=== PATIENT | female | born 1955 | race Caucasian/White ===

== ENCOUNTER 2018-04-30 08:51 | Inpatient (IN) ==
--- NOTE | 2018-04-03 12:43 | Anesthesiology Consultation ---
Date of Service April 03, 2018 Assessment & Plan (1) Encounter for pre-operative examination: Plan: CARDIO CLEARANCE 04/10: "EKG 04/03/2018 at [facility] SR 65 bpm. T inversio n in inferior leads unchanged from prior EKG in 2016. No anginal episodes. Her revised cardiac risk index Is 1 point class II risk 6% risk of major cardiac event. She is intermediate risk for cardiac events. She can proceed with surgery." Chart Review Chart Review: Acceptable Risk for Surgery and Patient seen in Pre Admission Testing Teaching & Discussion Instructed NPO after midnight before surgery, except medications with 15 cc of water. Medication instructions provided according to the PAT guidelines. History Surgery Operation Date: 04/30/18 11:25 Proposed Procedures p Left Total Shoulder Arthroplasty - Stanley Burr MD Height/Weight Height: 5 ft 1 in Weight: 118.6 kg Allergies Allergy/AdvReac Type Severity Reaction Status Date / Time gabapentin AdvReac Mild DIZZINESS Unverified 03/27/18 10:18 lisinopril AdvReac Cough Verified 03/27/18 10:41 Medications Home Medications Medication Instructions Recorded Confirmed Last Taken albuterol sulfate [Ventolin HFA] 2 puff INHALATION Q6H PRN 03/27/18 03/27/18 Unknown aspirin [Aspirin Low Dose] 81 mg PO QAM 03/27/18 03/27/18 Unknown atorvastatin 80 mg PO QAM 03/27/18 03/27/18 Unknown fesoterodine [Toviaz] 4 mg PO QAM 03/27/18 03/27/18 Unknown fluticasone-salmeterol [Advair 1 inh INHALATION BID 03/27/18 03/27/18 Unknown Diskus] ibuprofen 600 mg PO QID PRN 03/27/18 03/27/18 Unknown metoprolol succinate 150 mg PO QAM 03/27/18 03/27/18 Unknown montelukast 10 mg PO QDD 03/27/18 03/27/18 Unknown nitroglycerin 1 tab SUBLINGUAL DIRECTED PRN 03/27/18 03/27/18 Unknown omeprazole 20 mg PO BIDM 03/27/18 03/27/18 Unknown ranitidine HCl 150 mg PO HS 03/27/18 03/27/18 Unknown Past Medical History Medical History CAD (coronary artery disease) (Chronic) s/p PCI to LCx 2002 Asthma Carotid artery stenosis 12/2017 duplex showed 50-69% stenosis B/L DJD (degenerative joint disease) Exertional dyspnea GERD (gastroesophageal reflux disease) High cholesterol Hypertension Morbid obesity due to excess calories Osteoarthritis Sleep apnea COULD NOT TOLERATE CPAP MACHINE Urinary incontinence Past Family History Family History Sister No problems noted. Brother Family history of diabetes mellitus Sister Family history of diabetes mellitus Aunt Family history of diabetes mellitus Uncle Family history of diabetes mellitus Past Surgical History Surgical History History of cardiac cath 2002 Seen by PCP for YOUNG. Failed stress test. Subsequent cath with 1 stent. History of cataract surgery both eyes History of total bilateral knee replacement Hx of foot surgery right Past Anesthesia History No Family Hx of Anesthesia Complications and Other History of PONV Yes (NAUSEA WITH TKA) Motion Sickness Screening History of Motion Sickness: Yes Social History Smoking Status: Never smoker Do You Dip or Chew Tobacco: No Hx Alcohol Use: No Hx Substance Use: No Exercise / Class Metabolic Activity III < 4 Walking/Shop/Light housework (No SOB or CP with ambulation; +SOB with stairs) Review of Systems Pt denies any recent chest pain, shortness of breath, palpitations, cough, fever or URI. +24hr "stomach bug" 2 wks ago Physical Exam Vital Signs BP: 114/77 P: 63bpm SPO2: 94% RA T: 97.6 F R: 16 Constitutional + morbidly obese ENMT Mouth: + poor dentition and + loose teeth (2 bottom teeth next to gap from missing teeth); no dental restorations and no chipped teeth Thyromental Distance: > or= 3.5 Finger Breadths (3.5) Mallampati Class: III Mouth / Teeth: 1. missing 2 teeth Neck normal visual inspection; neck extension not limited Respiratory normal respiratory effort Auscultation: lungs clear to auscultation bilaterally Cardiovascular Rate/Rhythm: regular rate and regular rhythm Heart Sounds: no murmur Vessels: no carotid bruit Extremities: + edema (B/L non-pitting 1+ edema, pt states this is baseline) Testing Electrocardiogram Date: 04/03/18 Findings: + NSR @ (65) Chest X-Ray Date: 04/03/18 Mild cardiomegaly. Otherwise negative study. Stress Test Date: 08/19/13 Type: nuclear Mild intensity small reversible defect involving apical inferior wall, proximal lateral wall may suggest ischemia. No fixed defect is noted. Normal LV wall motion and systolic function. *this was done as part of a pre-op workup. Per 2014 f/u cardio note, "Unfortunately, the patient underwent knee replacement surgery before she received these results/recommendation. Since she had no cardiac complications ken-operatively and she is asymptomatic with no evidence of angina. I recommend continuing medical therapy at this time." Laboratory Results 04/03/18 13:28 04/03/18 13:28 Blood Type O Positive 04/03/18 13: Antibody Screen NEGATIVE 04/03/18 13:28 PT 10.3 Seconds (9.0-12.0) 04/03/18 13: INR 1.0 (0.9-1.1) 04/03/18 13: APTT 26.1 Seconds (21.0-31.0) 04/03/18 13:28 Hemoglobin A1c 6.4 % (4.5-5.6) H 04/03/18 13:28 Urine Color Dark Yellow 04/03/18 13:28 Urine Appearance Clear (Clear) 04/03/18 13:28 Urine pH 5.5 (4.5-7.5) 04/03/18 13:28 Ur Specific [place] 1.028 (1.000-1.030) 04/03/18 13:28 Urine Protein Negative (Negative) 04/03/18 13:28 Urine Glucose (UA) Negative (Negative) 04/03/18 13:28 Urine Ketones Trace (Negative) H 04/03/18 13:28 Urine Nitrite Negative (Negative) 04/03/18 13:28 Ur Leukocyte Esterase Negative (Negative) 04/03/18 13:28
--- NOTE | 2018-04-03 12:48 | PAT Medication Instructions ---
Medication Instructions Date of Service April 03, 2018 Home Medications albuterol sulfate [Ventolin HFA] 2 puff INHALATION Q6H PRN aspirin [Aspirin Low Dose] 81 mg PO QAM atorvastatin 80 mg PO QAM fesoterodine [Toviaz] 4 mg PO QAM fluticasone-salmeterol [Advair Diskus] 1 inh INHALATION BID ibuprofen 600 mg PO QID PRN metoprolol succinate 150 mg PO QAM montelukast 10 mg PO QDD nitroglycerin 1 tab SUBLINGUAL DIRECTED PRN omeprazole 20 mg PO BIDM ranitidine HCl 150 mg PO HS ASK your surgeon for instructions ibuprofen 600 mg PO QID PRN DO NOT take the morning of surgery fesoterodine [Toviaz] 4 mg PO QAM Take morning of surgery With a small sip of water, OTHERWISE NOTHING TO EAT OR DRINK AFTER MIDNIGHT: albuterol sulfate [Ventolin HFA] 2 puff INHALATION Q6H PRN (if needed, and bring with you to the hospital) aspirin [Aspirin Low Dose] 81 mg PO QAM atorvastatin 80 mg PO QAM fluticasone-salmeterol [Advair Diskus] 1 inh INHALATION BID metoprolol succinate 150 mg PO QAM nitroglycerin 1 tab SUBLINGUAL DIRECTED PRN (if needed) omeprazole 20 mg PO BIDM Take evening before surgery albuterol sulfate [Ventolin HFA] 2 puff INHALATION Q6H PRN (if needed) fluticasone-salmeterol [Advair Diskus] 1 inh INHALATION BID montelukast 10 mg PO QDD nitroglycerin 1 tab SUBLINGUAL DIRECTED PRN (if needed) omeprazole 20 mg PO BIDM ranitidine HCl 150 mg PO HS Other Notes If you have any questions please call us at [phone] or [phone] or [phone] or [phone]
[2018-04-03 14:09] LABS: Basophils # (auto) 0.02 K/uL (0-0.2); Basophils % (auto) 0.3 %; Eosinophils # (auto) 0.16 K/uL (0-0.5); Hematocrit (blood only) 37.1 % (37-47); Hemoglobin 11.9 g/dL (12.0-16.0); Immature Granulocytes # (auto) 0.02 K/uL (0.00-0.02); Immature Granulocytes % (auto) 0.3 %; Lymphocytes # (auto) 1.96 K/uL (1.2-3.4); Lymphocytes % (auto) 24.7 %; Mean Corpuscular Hgb Conc 32.1 g/dL (32-36); Mean Corpuscular Volume 85.9 fL (80-100); Mean Platelet Volume 9.9 fL (7.4-10.4); Monocytes % (auto) 8.8 %; Neutrophils # (auto) 5.06 K/uL (1.4-6.5); Neutrophils % (auto) 63.9 %; Platelet Count 296 K/uL (130-400); RDW Coefficient of Variation 14.2 % (11.5-14.5); RDW Standard Deviation 44.4 fL (36.4-46.3); Red Blood Count 4.32 M/uL (4.2-5.4); White Blood Count 7.92 K/uL (4.8-10.8)
[2018-04-03 14:13] LABS: Estimated Average Glucose 137 mg/dl; Hemoglobin A1C 6.4 % (4.5-5.6)
[2018-04-03 14:20] LABS: Partial Thromboplastin Time 26.1 Seconds (21.0-31.0); Prothrombin Time 10.3 Seconds (9.0-12.0)
--- NOTE | 2018-04-03 14:24 | XRay Report ---
XR chest Pre-admission PA/Lat CLINICAL HISTORY: pat preoperative evaluation COMPARISON STUDY: 08/05/2013 FINDINGS: Mild cardiomegaly. Diaphragms are smooth. Lungs are clear. IMPRESSION: Mild cardiomegaly. Otherwise negative study. The above report was generated using voice recognition software. It may contain grammatical, syntax or spelling errors. Electronically signed by: Kartik Valenzuela M.D. 04/03/2018 2:22 PM
[2018-04-03 14:39] LABS: Appearance Urine Clear (Clear); Bilirubin Urine Negative (Negative); Blood Urine Negative (Negative); Color Urine Dark Yellow; Glucose Urine UA Negative (Negative); Ketones Urine Trace (Negative); Leukocyte Esterase Urine Negative (Negative); Nitrite Urine Negative (Negative); Protein Urine Negative (Negative); Specific Gravity Urine 1.028 (1.000-1.030); Urobilinogen Urine Negative (Negative); pH Urine 5.5 (4.5-7.5)
[2018-04-03 15:51] LABS: Albumin Level 3.3 gm/dl (3.4-5.0); BUN Creatinine Ratio 21.9 (10-20); Creatinine Clr Calc Pharmacy 77.6 ml/min; Est GFR (African American) 80.5; Est GFR (Non-African American) 69.4; Potassium 4.3 mmol/L (3.5-5.1)
--- NOTE | 2018-04-29 21:12 | History and Physical Report ---
DATE OF ADMISSION: 04/30/2018 CHIEF COMPLAINT: Chronic left shoulder pain. HISTORY OF PRESENT ILLNESS: This is a 62-year-old female patient of Dr. Agudelo complaining of chronic left shoulder pain, longstanding, now progressively getting worse. The patient failed conservative treatment and has been diagnosed with end-stage osteoarthritis per clinical and radiographic exams. The patient wished to proceed with a left total shoulder arthroplasty. PAST MEDICAL HISTORY: Angina. She has a benign congenital heart murmur, hypertension, hypercholesterolemia, asthma, COPD, sciatica. SOCIAL HISTORY: Nonsmoker, nondrinker. PAST SURGICAL HISTORY: Left knee surgery and right heel surgery. FAMILY HISTORY: Noncontributory. REVIEW OF SYSTEMS: Chronic left shoulder pain. Otherwise, denies any shortness of breath, chest pain, nausea, vomiting or any other joint complaints. MEDICATIONS: Toviaz 4 mg daily, atorvastatin 40 mg daily, ProAir HFA 90 mcg actuation 2 puffs every 4-6 hours p.r.n., ranitidine 150 mg twice daily, metoprolol 50 mg daily, montelukast 10 mg daily, fluticasone 50 mcg actuation 1 spray in each nostril daily, ibuprofen as needed, Advair Diskus 500/50 one puff inhalation twice daily, omeprazole 20 mg daily, Nitrostat 0.4 mg sublingual as needed, metoprolol 100 mg twice daily. ALLERGIES: GABAPENTIN AND LISINOPRIL. PHYSICAL EXAMINATION: GENERAL: Well-developed, well-nourished 62-year-old female patient of Dr. Agudelo in no acute distress. She is alert and oriented x3 and pleasant. HEENT: Normocephalic, atraumatic. Extraocular motions are intact. Pupils are equal, reactive to light. HEART: Regular rate and rhythm, no murmurs. LUNGS: Clear. ABDOMEN: Soft, nontender, bowel sounds present. EXTREMITIES: Left shoulder reveals active range of motion to 160 degrees with pain, passively we can get her to 180 degrees with no signs of frozen shoulder. She has 3+ to 4/5 strength globally with pain. She has crepitation with passive range of motion. NEUROLOGIC: Neurovascularly, she is intact in her left upper extremity. DIAGNOSES: Left shoulder end-stage osteoarthritis, history of angina, history of congenital heart disease with a benign murmur, hypertension, hypercholesterolemia, asthma, stent placement, sciatica. PLAN: The patient was advised of her diagnosis. Indications, risks, benefits, postop course have all been reviewed. The patient wished to proceed with a left total shoulder arthroplasty. Necessary consent forms, preoperative testing and clearances will be obtained.
[~2018-04-30 08:51] MED LIST: ACETAMINOPHEN 500 MG TAB PO SCH; CeleBREX 200 MG CAP PO SCH; FAMOTIDINE 20 MG TAB PO SCH; LR 15ML/HR IV SCH; METOCLOPRAMIDE HCL 10 MG TABLET PO SCH; dexAMETHasone 4 MG TAB PO SCH
--- NOTE | 2018-04-30 09:40 | History & Physical Bridge Note ---
Date of Service April 30, 2018 History & Physical Bridge Note I have examined the patient, reviewed the History & Physical and in the interval since the performance of the History & Physical I have noted the following changes of clinical significance: no changes noted
[2018-04-30] MEDS ORDERED: fentaNYL citrate 100 MCG/2 ML VIAL ONE ×2 (10:29→11:31)
[2018-04-30] MEDS ORDERED: PROPOFOL IV EMULSION 10 MG/ML 20 ML VIAL IV ONE ×2 (10:29→11:31)
[2018-04-30] MEDS ORDERED: LIDOCAINE HCL 2% 2 ML VIAL/AMP(20MG/ML) INFIL ONE ×2 (10:29→11:31)
[2018-04-30] MEDS ORDERED: MIDAZOLAM HCL 1 MG/ML 2ML VIAL ONE ×2 (10:29→11:31)
[2018-04-30] MEDS ORDERED: DEXAMETHASONE SOD INJ 4 MG/ML VIAL ONE (11:17)
[2018-04-30] MEDS ORDERED: BUPIVACAINE/EPINEPHRINE 0.25% 1:200,000 30 ML VIAL ONE (11:17)
[2018-04-30] MEDS ORDERED: ATROPINE SULFATE 0.1 MG/ML 10ML SYR IV PRN (11:18)
[2018-04-30] MEDS ORDERED: PROMETHAZINE HCL 6.25 MG in SODIUM CHLORIDE 0.9% 50 ML IV PRN (11:18)
[2018-04-30] MEDS ORDERED: ONDANSETRON INJ 2 MG/ML 2 ML VIAL IV PRN ×2 (11:18→15:46)
[2018-04-30] MEDS ORDERED: fentaNYL citrate 100 MCG/2 ML VIAL IV PRN (11:18)
[2018-04-30] MEDS ORDERED: ePHEDrine sulfate 50 MG/ML AMP IV PRN (11:18)
[2018-04-30] MEDS: CEFAZOLIN 3000MG 65 ML IV SCH ×2 (11:40→22:53)
[2018-04-30] MEDS ORDERED: BACITRACIN INJ 50,000 UNIT VIAL ONE (11:48)
[2018-04-30] MEDS ORDERED: EpINEphrine HCL INJ 1 MG/ML 1ML SYRINGE ONE (11:48)
[2018-04-30] MEDS ORDERED: ONDANSETRON INJ 2 MG/ML 2 ML VIAL ONE ×2 (12:38→12:54)
[2018-04-30] MEDS ORDERED: ROCURONIUM BROMIDE 10 MG/ML 5 ML VIAL ONE (12:38)
[2018-04-30] MEDS ORDERED: NEOSTIGMINE METHYLSULFATE 1 MG/ML 10ML VIAL ONE (12:54)
[2018-04-30] MEDS ORDERED: GLYCOPYRROLATE 0.2 MG/ML VIAL ONE (12:54)
--- NOTE | 2018-04-30 14:02 | Post Operative Brief Note ---
Immediate Post Op Note v1 Date of Surgery April 30, 2018 Pre & Post Diagnosis Operation Date: 04/30/18 11:25 Pre-Op Diagnosis: LEFT SHOULDER OSTEOARTHRITIS, morbid obesity BMI 50.4 Post-Op Diagnosis: LEFT SHOULDER OSTEOARTHRITIS, morbid obesity BMI 50.4, biceps tenosynovitis Procedure Operation Date: 04/30/18 11:25 Actual Procedures p Left Total Shoulder Arthroplasty, biceps tenodesis, increased difficulty morbid obesity BMI 50.4- Stanley Burr MD Surgeon Stanley Burr MD Marketing Clerk Kartik TAVAREZ Estimated Blood Loss 75 Findings Consistent with Post-Op Diagnosis Specimens Bone cuts Drains Hemovac Drain Anesthesia Type General Regional Complications none Disposition Accompanied Patient To Recovery: No Overlapping Procedure I was immediately available: during the entire case.
--- NOTE | 2018-04-30 14:19 | Operative Report ---
Post Operative Report Pre & Post Diagnosis Operation Date: 04/30/18 11:25 Pre-Op Diagnosis: LEFT SHOULDER OSTEOARTHRITIS, morbid obesity BMI 50.4 Post-Op Diagnosis: LEFT SHOULDER OSTEOARTHRITIS, morbid obesity BMI 50.4, biceps tenosynovitis Procedure Operation Date: 04/30/18 11:25 Actual Procedures p Left Total Shoulder Arthroplasty(Left), biceps tenodesis, increased difficulty morbid obesity BMI 50.4- Stanley Burr MD Surgeon Stanley Burr MD Sculpture Instructor Kartik TAVAREZ Estimated Blood Loss 75 Findings Consistent with Post-Op Diagnosis Specimens Humeral head Drains 2 Hemovac Anesthesia Type General Regional Complications none Disposition Accompanied Patient To Recovery: No Disposition: Recovery Room Indications 62-year-old female progressive osteoarthritis left shoulder glenohumeral joint with radiographs demonstrating advanced glenohumeral end-stage osteoarthritis [id number] glenohumeral joint and axillary view. Large inferior osteophytes. Description of Procedure The patient was taken to the operating room and anesthetized under a general and regional block anesthesia. A towel roll was placed under the medial border of the scapula of the left shoulder. The patient's head was placed on a foam headrest and protective eyewear was placed and the extremities were well padded. The arm was draped free in order to manipulate the shoulder as necessary. The shoulder exam demonstrated 140 degrees forward elevation 90 degrees abduction 45 degrees external rotation and a very obese arm and shoulder. She also had significant abdominal leg obesity. I could not put a LUÍS hose on her left leg to be at the rapid with large Sage wrap we had used larger than normal SCDs on left leg due to her chronic fat and lymphedema issues. The shoulder was sterilely prepped and draped in the usual sterile fashion. An anterior deltopectoral approach was performed. A longitudinal incision was made in the interval. The skin was incised sharply and subcutaneous tissues dissected down to the fascia. The cephalic vein was identified and retracted laterally with the deltoid. Any crossing veins were tied off with silk ties and divided. The clavipectoral fascia was divided at the lateral margin of the conjoined tendon and divided up to the level of the coracoacromial ligament which was preserved. The upper 1 cm of the pectoralis was released for inferior exposure. The biceps tendon findings demonstrated chronic tenosynovitis but intact biceps tendon. The rotator cuff tendon findings demonstrated normal intact rotator cuff. The circumflex vessels were identified and tied off with silk ties and divided laterally. The fibers and subscapularis were split longitudinally at the level of the circumflex vessels down to the capsule and then reflected off the inferior capsule using a Kitner elevator. The axillary nerve was identified with a tug test and protected with a blunt Marzena retractor. The rotator interval was opened up and extended down to the glenoid. The biceps tendon was identified and tenodesed to the pectoralis tendon with [id number] #2 FiberWire sutures in the proximal biceps was resected. The subscapularis tendon was taken down with a trans-tendinous incision leaving a cuff of tissue for repair on the lesser tuberosity. The incision was carried down to the tendon and the capsule and a #1 Vicryl suture was placed into the free end of the subscapularis tendon. The capsule was subperiosteally dissected off the inferior neck of the humerus exposing the humeral osteophytes which demonstrated large inferior osteophytes. The osteophytes were excised with an artist chisel and a rongeur. The capsular release along the inferior neck of the humerus was completed. The humerus was then retracted posterior to the glenoid with a Fukuda retractor. The remainder of the biceps tendon and labrum was resected. The glenoid findings demonstrated complete exposed bone with central wear no articular cartilage remaining. I did an anterior inferior and posterior inferior release with electrocautery on bone and a Turcios elevator with the axillary nerve continuing to be protected with the blunt Hohmann retractor inferiorly. When the releases were completed and the humeral head was exposed with some extension and external rotation and in anatomic head cut was made using the oscillating saw. The humeral head findings demonstrated eburnated bone central region of the humeral head. The humeral head was then retracted posterior to the glenoid with Hohmann retractors and Bankart retractor placed anteriorly. A central drill hole was made into the glenoid. The glenoid was sized for a size 44 Cortiloc component. The Tornier ascend flex total shoulder arthroplasty system was used and the Affinity Cortiloc glenoid component was chosen. The glenoid was reamed and the central drill widened and the guide for the peg holes was placed in the peg holes were drilled and a trial component was placed with a tight fit. The trial was removed and the glenoid was irrigated with pulsatile lavage antibiotic solution and the drill holes were dried and packed with epinephrine-soaked tampons for hemostasis. The [place] G cement was vacuum mixed. The final component, Affinity Cortiloc size 44, was cemented into position and held in position with pressure until the cement cu red. Attention was taken to the humeral preparation. A centralizing awl was used in the canal followed by broaches up to a size 4. This had the appropriate fit and fill. A size 48 x 18 millimeter humeral head was then used. It was rotated into appropriate position. A trial reduction was performed and the shoulder was stable. The trial was removed and the humerus and canal were irrigated with antibiotic solution with bacitracin. 3 drill holes were made into the hard bone in the bicipital groove lateral to the lesser tuberosity and 3 #5 FiberWire transosseous sutures were placed for repair of the subscapularis. After further irrigation of the canal and the final components were assembled. The final components were the 48 x 18 high offset to the 4B standard ascend flex stem. The implant was then impacted into the humerus with a tight press-fit. The humerus was reduced to the glenoid and stability verified. The subscapularis was repaired with the #5 FiberWire sutures in a Onesimo-Ezequiel suture technique and lateral row fixation with [id number] #2 FiberWire in the soft tissue. The rotator interval was closed and maximal external rotation. The pectoralis was then closed with [id number] #2 FiberWire suture. 2 Hemovac drains were placed. The deltopectoral interval was closed with [id number] #1 Vicryl sutures. The subcutaneous tissues were closed with interrupted 2-0 Vicryl and the skin was closed with jose and a sterile dressing was applied. The patient tolerated the procedure well. Range of motion with no tension on repair was 140 degrees forward elevation 90 degrees abduction and 60 degrees of external rotation without any tension on repair. My physician study assistant Kartik TAVRAEZ, assisted in soft tissue retraction instrument management suture management and assisted in the subcutaneous and skin closure and will participate in the postoperative care the patient. There was increased difficulty throughout the procedure from positioning through retraction and exposure due to her morbid obesity BMI 50.4. I attest to the content of the Intraoperative Record and any orders documented therein. Any exceptions are noted below.
--- NOTE | 2018-04-30 14:37 | Anesthesiology Progress Note ---
Date of Service April 30, 2018 Anesthesia Post Procedure Vital Signs Vital Signs: Temp Pulse Pulse Resp BP Pulse Ox 04/30/18 14:22 36.7 C 72 20 184/88 H 99 04/30/18 10:07 36.8 C 78 20 189/83 H 95 Pain Intensity Left Shoulder: Pain Intensity: 0 Notes Mental Status: alert / awake / arousable Patient Amnestic to Procedure: Yes Nausea / Vomiting: adequately controlled Pain: adequately controlled Airway Patency, RR, SpO2: stable & adequate BP & HR: stable & adequate Hydration State: stable & adequate Anesthetic Complications: no major complications apparent Notes: Block working well in pacu
--- NOTE | 2018-04-30 15:07 | XRay Report ---
XR shoulder LT min 2V routine CLINICAL HISTORY: Post shoulder surgery COMPARISON: None. DISCUSSION: There are postsurgical changes of a total left shoulder arthroplasty. There is no disloca tion. There are overlying surgical drains and skin jose. Increased markings, are likely secondary to a hypoventilatory study. IMPRESSION: Postsurgical changes of a total left shoulder arthroplasty. No fractures or dislocations identified. Electronically signed by: Shay Toth M.D. 04/30/2018 3:05 PM
[2018-04-30] MEDS ORDERED: NITROGLYCERIN SL 0.4 MG/TAB TAB SL PRN (15:46)
[2018-04-30] MEDS ORDERED: ALBUTEROL HFA 8 GM INHALER INH PRN (15:46)
[2018-04-30] MEDS ORDERED: BISACODYL 10 MG SUPP PR PRN (15:46)
[2018-04-30] MEDS ORDERED: HYDROmorphone INJ 0.5 MG/0.5 ML SYR IV PRN (15:46)
[2018-04-30] MEDS ORDERED: METOCLOPRAMIDE HCL INJ 5 MG/ML 2 ML VIAL IV PRN (15:46)
[2018-04-30] MEDS ORDERED: TRAMADOL HCL 50 MG TABLET PO PRN (15:46)
[2018-04-30] MEDS ORDERED: MAGNESIUM HYDROXIDE SUSP 30 ML UDC PO PRN (15:46)
[2018-04-30] MEDS ORDERED: SODIUM CHLORIDE 0.9% 1000ML 1,000 ML IV SCH (15:46)
[2018-04-30] MEDS ORDERED: NALOXONE HCL 0.4 MG/1 ML VIAL/CARP IV PRN (15:46)
[2018-04-30] MEDS: MONTELUKAST SODIUM 10 MG TABLET PO SCH (17:27)
[2018-04-30] MEDS: PANTOprazole 40 MG TAB PO SCH (17:27)
[2018-04-30] MEDS: CEFAZOLIN 2000MG 2,000 MG/15 ML SYR IV SCH (19:45)
[2018-04-30] MEDS: OXYCODONE HCL IR 5 MG TAB (IMMEDIATE RELEASE) PO PRN (19:50)
[2018-04-30] MEDS ORDERED: cloNIDine HCl 0.1 MG TAB PO PRN (19:50)
[2018-04-30] MEDS: FLUTICASONE/SALMETEROL (ADVAIR) 500/50 INH 14 PUFF INH SCH (20:44)
[2018-04-30] MEDS: DOCUSATE SODIUM 100 MG CAP PO SCH (20:44)
[2018-04-30] MEDS: SENNA 8.6 MG TAB PO SCH (20:44)
[2018-04-30] MEDS: ACETAMINOPHEN 500 MG TAB PO SCH (20:45)
--- NOTE | 2018-05-01 00:11 | Consultation Report ---
DATE OF ADMISSION: 04/30/2018 CHIEF COMPLAINT: Status post left shoulder surgery. HISTORY OF PRESENT ILLNESS: This is a 62-year-old female with past medical history significant for asthma, obstructive sleep apnea, hyperlipidemia, CAD, hypertension, obesity, GERD, generalized osteoarthritis, essential tremor, BPH, ambulatory dysfunction, status post left shoulder surgery for osteoarthritis, tolerated the procedure okay, resting comfortably, denies any pain. Denies any headaches. No chest pain, no shortness of breath, no cough. No feeling hot or cold. No nausea, no abdominal pain. Tolerating the diet okay. Denies any complaints. ALLERGIES: GABAPENTIN, LISINOPRIL. PAST MEDICAL HISTORY: As mentioned above. PAST SURGICAL HISTORY: Left total knee arthroplasty, biopsy of the back, excision of breast lesion, colonoscopy, EGD, knee arthroscopy, ligation of oviduct, CAD status post stent, removal of heel spur. MEDICATIONS: The patient is on Flonase 2 sprays into each nostril daily, ibuprofen 600 mg p.o. t.i.d. p.r.n., Advair Diskus 500/50 mcg one inhalation b.i.d., Toprol-XL 150 mg p.o. daily, nitroglycerin 0.4 mg sublingual p.r.n., Toviaz 4 mg p.o. daily, albuterol 2 puffs every 4 hours p.r.n., Lipitor 80 mg p.o. daily, Singulair 10 mg p.o. daily, omeprazole 20 mg p.o. daily, Zantac 150 mg 2 tablets at bedtime, albuterol nebulization every 4 hours p.r.n., aspirin 81 mg p.o. daily. FAMILY HISTORY: Significant for brother has diabetes. Father had CAD at age of 42. Mother had heart disorder, hypertension. Sister has diabetes, renal failure. SOCIAL HISTORY: . No smoking history. No alcohol, no drug use. REVIEW OF SYMPTOMS: As per HPI. Rest of review of systems negative. PHYSICAL EXAMINATION: GENERAL: The patient is obese, not in acute distress. VITAL SIGNS: Temperature 36.5, pulse 62, respiratory rate 18, blood pressure 161/80, oxygen 96% on 2 liters. HEENT: No pallor, no icterus. Pupils equal, round, and reactive to light. NECK: No JVD. No neck masses. No carotid bruits. CARDIOVASCULAR: S1, S2 heard, regular rate and rhythm, no murmur, no gallop. RESPIRATORY SYSTEM: Normal AP diameter. No accessory muscle use. No wheezing, no crackles. ABDOMEN: Soft, bowel sounds present. Nontender. No distention. EXTREMITIES: Status post left shoulder surgery, is in sling. LABS: Unavailable at this time. ASSESSMENT AND PLAN: 1. This is 62-year-old female status post left shoulder surgery. Management as per Orthopedics. 2. Hypertension. Continue home medication of Toprol-XL. We will monitor the blood pressure. clonidine prn 3. History of coronary artery disease status post stent. Continue aspirin, statin, beta stuart. Currently stable. 4. Gastroesophageal reflux disease. Continue PPI. 5. Hyperlipidemia. Continue statin. 6. History of asthma and obstructive sleep apnea. Continue home inhaler nebs p.r.n., oxygen prn. 7. Deep venous thrombosis prophylaxis and disposition as per Orthopedics. MTDD
[2018-05-01] MEDS: CEFAZOLIN 2000MG 2,000 MG/15 ML SYR IV SCH (04:22)
[2018-05-01 05:40] LABS: Immature Granulocytes # (auto) 0.02 K/uL (0.00-0.02); Immature Granulocytes % (auto) 0.2 %; Lymphocytes # (auto) 0.95 K/uL (1.2-3.4); Lymphocytes % (auto) 9.7 %; Mean Corpuscular Hgb Conc 32.3 g/dL (32-36); Mean Corpuscular Volume 86.6 fL (80-100); Mean Platelet Volume 9.6 fL (7.4-10.4); Monocytes # (auto) 0.42 K/uL (0.11-0.59); Monocytes % (auto) 4.3 %; Neutrophils # (auto) 8.44 K/uL (1.4-6.5); Neutrophils % (auto) 85.8 %; Platelet Count 235 K/uL (130-400); RDW Standard Deviation 44.6 fL (36.4-46.3); Red Blood Count 3.58 M/uL (4.2-5.4); White Blood Count 9.83 K/uL (4.8-10.8)
[2018-05-01] MEDS: ACETAMINOPHEN 500 MG TAB PO SCH ×3 (05:45→22:01)
[2018-05-01 06:10] LABS: BUN Creatinine Ratio 21.5 (10-20); Calcium 8.5 mg/dl (8.5-10.1); Creatinine Clr Calc Pharmacy 84.3 ml/min; Est GFR (African American) 87.6; Est GFR (Non-African American) 75.6; Potassium 4.3 mmol/L (3.5-5.1)
[2018-05-01 06:30] LABS: Estimated Average Glucose 131 mg/dl; Hemoglobin A1C 6.2 % (4.5-5.6)
--- NOTE | 2018-05-01 08:14 | Orthopedic Progress Note ---
Date of Service May 01, 2018 Assessment & Plan (1) DJD of left shoulder: POD #1, Left shoulder TSA, biceps tenodesis PT/ OT DVT proph- ASA D/C planning- Home w OPPT As per medicine Subjective POD #1, Feeling well, denies sob, cp, n/v, pain controlled well. Physical Exam Vital Signs (Past 24 Hours): Last Vital Signs Temp 37 C 05/01/18 07:38 Pulse 71 05/01/18 07:38 Resp 16 05/01/18 07:38 BP 110/65 05/01/18 07:38 Pulse Ox 91 05/01/18 07:38 Physical Exam: LEfft shoulder dressing c/d/i, no drainage, sling in tact, drain in tact, fingers mobile. A&Ox3.
[2018-05-01] MEDS: FLUTICASONE/SALMETEROL (ADVAIR) 500/50 INH 14 PUFF INH SCH ×2 (08:37→20:21)
[2018-05-01] MEDS: ASPIRIN 81 MG ECTAB PO SCH (08:38)
[2018-05-01] MEDS: PANTOprazole 40 MG TAB PO SCH ×2 (08:38→16:35)
[2018-05-01] MEDS: MULTIVITAMIN TAB PO SCH (08:38)
[2018-05-01] MEDS ORDERED: ALBUTEROL 0.083% NEBU SOLN 3 ML VIAL NEB PRN (08:38)
[2018-05-01] MEDS: DOCUSATE SODIUM 100 MG CAP PO SCH ×2 (08:38→20:21)
[2018-05-01] MEDS: METOPROLOL SUCC 50MG EXT REL TAB PO SCH (08:38)
[2018-05-01] MEDS: ATORVASTATIN 40 MG TAB PO SCH (08:38)
[2018-05-01] MEDS: [UNRECOGNIZED DRUG - REMARK] PO SCH (08:39)
--- NOTE | 2018-05-01 08:41 | Hospitalist Progress Note ---
Date of Service May 01, 2018 Assessment & Plan (1) DJD of left shoulder: S/P L Total Shoulder Arthoplasty POD #1 Dr. Burr tolerated procedure well EBL 75ml; drain outpt 25ml -pain and wound management per ortho -PT/OT as directed by ortho -ASA and early ambulation for VTE prophylaxis -monitor cbc, bmp post operatively (2) Acute blood loss anemia: -H/H 10.0/31.0 -pre op 11.9/37.1 -follow (3) CAD (coronary artery disease): -hx of PCI in 2003 -denies CP/SOB -on ASA, Statin, BB (4) HTN (hypertension): -blood pressure controlled -continue metoprolol (5) HLD (hyperlipidemia): -continue statin (6) Asthma: -continue Advair, singulair -encouraged incentive spirometry -albuterol nebulizer treatments added prn (7) GERD (gastroesophageal reflux disease): -continue PPI and Ranitidine, asymptomatic (8) DVT prophylaxis: -ASA per primary Disposition: D/C to home with services when able per surgery Follow up: PCP Adela Taveras upon discharge Patient was seen in collaboration with Dr. Tapia, please see addendum Thank you for this consultation. We will follow the patient with you during their hospital stay. You can reach a member of the [facility]ist Team 09/09 via pager @ [phone]. Supervising Physician Co-Signing Physician Notes Patient is seen and examined at bedside. left shoulder pain is controlled. Denies chest pain, SOB, dizziness. No other complaints. On exam patient is morbidly obese, no distress, lungs CTA, S1, s2, left shoulder in surgical dressing/sling, +drain, B/L LE edema. Monitor for Post OP anemia, Pain control, DVT Px per Primary team, bowel regimen to prevent constipation. Continue home inhalers for asthma. Monitor for Hypoxia. I personally reviewed the record. Patient is interviewed and examined at bedside. Patient's care is coordinated with Aurora Valdes PA-C. Please refer to the documentation above for details of patient's presentation and for discussion of other issues. Subjective Patient was seen and examined in 316-1. Follow up s/p L TSA POD #1. Slept well last evening. Complaining of 6/10 L shoulder pain. Denies f/c/s, chest pain, sob, wheezing, n/v/d. Tolerating diet. Does have cough, states, "its just my asthma." States she takes advair and prn albuterol. Appetite is good. Offers no concerns or complaints. Physical Exam Vital Signs (Past 24 Hours): Last Vital Signs Temp 37 C 05/01/18 07:38 Pulse 71 05/01/18 07:38 Resp 16 05/01/18 07:38 BP 110/65 05/01/18 07:38 Pulse Ox 91 05/01/18 07:38 Physical Exam: Gen: WD/WN, F, sitting up in bed, NAD, A&O x3, pleasant conversing easily HEENT: Normocephalic, atraumatic, conjunctivae moist, sclerae anicteric, mucous membranes moist. Lung: Clear to Auscultation bilaterally, no wheezes/rales/rhonchi +hoarse cough during evaluation Heart: Regular rate, regular rhythm, very soft 1/6 WILFRID noted RUSB, no rubs, or gallops Abdomen: Soft, NT, ND +BS x 4 Extremities: obese lower extremities with trace edema, SCDS in place Skin: Warm, no rash, negative turgor. Results & Data Laboratory Results 05/01/18 05/01/18 05/01/18 Range/Units 05:30 05:30 05:30 WBC (4.8-10.8) K/uL RBC (4.2-5.4) M/uL Hgb (12.0-16.0) g/dL Hct (37-47) % MCV (80-100) fL MCH (25-34) pg MCHC (32-36) g/dL RDW Std Deviation (36.4-46.3) fL RDW Coeff of [place] (11.5-14.5) % Plt Count (130-400) K/uL MPV (7.4-10.4) fL Immature Gran % (Auto) % Neut % (Auto) % Lymph % (Auto) % [place] % (Auto) % Eos % (Auto) % Baso % (Auto) % Immature Gran # (Auto) (0.00-0.02) K/uL Neut # (Auto) (1.4-6.5) K/uL Lymph # (Auto) (1.2-3.4) K/uL [place] # (Auto) (0.11-0.59) K/uL Eos # (Auto) (0-0.5) K/uL Baso # (Auto) (0-0.2) K/uL Sodium 141 (136-145) mmol/L Potassium 4.3 (3.5-5.1) mmol/L Chloride 109 H (98-107) mmol/L Carbon Dioxide 27 (21-32) mmol/L Anion Gap 6.0 (3-11) BUN 18 (7-18) mg/dl Creatinine 0.82 (0.6-1.2) mg/dl Est Cr Clr Drug Dosing 84.3 ml/min Est GFR ( Amer) 87.6 Est GFR (Non-Af Amer) 75.6 BUN/Creatinine Ratio 21.5 H (10-20) Glucose 145 H (70-99) mg/dl Estimat Average Glucose 131 mg/dl Hemoglobin A1c 6.2 H (4.5-5.6) % Calcium 8.5 (8.5-10.1) mg/dl Hepatitis C Ab Screen Pending 05/01/18 Range/Units 05:30 WBC 9.83 (4.8-10.8) K/uL RBC 3.58 L (4.2-5.4) M/uL Hgb 10.0 L (12.0-16.0) g/dL Hct 31.0 L (37-47) % MCV 86.6 (80-100) fL MCH 27.9 (25-34) pg MCHC 32.3 (32-36) g/dL RDW Std Deviation 44.6 (36.4-46.3) fL RDW Coeff of [place] 14.0 (11.5-14.5) % Plt Count 235 (130-400) K/uL MPV 9.6 (7.4-10.4) fL Immature Gran % (Auto) 0.2 % Neut % (Auto) 85.8 % Lymph % (Auto) 9.7 % [place] % (Auto) 4.3 % Eos % (Auto) 0.0 % Baso % (Auto) 0.0 % Immature Gran # (Auto) 0.02 (0.00-0.02) K/uL Neut # (Auto) 8.44 H (1.4-6.5) K/uL Lymph # (Auto) 0.95 L (1.2-3.4) K/uL [place] # (Auto) 0.42 (0.11-0.59) K/uL Eos # (Auto) 0.00 (0-0.5) K/uL Baso # (Auto) 0.00 (0-0.2) K/uL Sodium (136-145) mmol/L Potassium (3.5-5.1) mmol/L Chloride (98-107) mmol/L Carbon Dioxide (21-32) mmol/L Anion Gap (3-11) BUN (7-18) mg/dl Creatinine (0.6-1.2) mg/dl Est Cr Clr Drug Dosing ml/min Est GFR ( Amer) Est GFR (Non-Af Amer) BUN/Creatinine Ratio (10-20) Glucose (70-99) mg/dl Estimat Average Glucose mg/dl Hemoglobin A1c (4.5-5.6) % Calcium (8.5-10.1) mg/dl Hepatitis C Ab Screen Diagnostic Findings Shoulder Xray: IMPRESSION: Postsurgical changes of a total left shoulder arthroplasty. No fractures or dislocations identified. (1) CAD (coronary artery disease) Associated angina: without angina Coronary Disease-Associated Artery/Lesion type: [place] artery [place] vs. transplanted heart: [place] heart Qualified Code(s): I25.10 - Atherosclerotic heart disease of [place] coronary artery without angina pectoris (2) HLD (hyperlipidemia) Hyperlipidemia type: unspecified Qualified Code(s): E78.5 - Hyperlipidemia, unspecified (3) GERD (gastroesophageal reflux disease) Esophagitis presence: esophagitis presence not specified Qualified Code(s): K21.9 - Gastro-esophageal reflux disease without esophagitis (4) HTN (hypertension) Hypertension type: essential hypertension Qualified Code(s): I10 - Essential (primary) hypertension (5) Asthma Asthma complication type: uncomplicated Asthma persistence: unspecified Asthma severity: unspecified severity Qualified Code(s): J45.909 - Unspecified asthma, uncomplicated (6) DJD of left shoulder Osteoarthritis type: primary Qualified Code(s): M19.012 - Primary osteoarthritis, left shoulder
[2018-05-01] MEDS: MONTELUKAST SODIUM 10 MG TABLET PO SCH (16:35)
[2018-05-01] MEDS: SENNA 8.6 MG TAB PO SCH (20:20)
[2018-05-01] MEDS: OXYCODONE HCL IR 5 MG TAB (IMMEDIATE RELEASE) PO PRN (20:22)
[2018-05-02] MEDS: OXYCODONE HCL IR 5 MG TAB (IMMEDIATE RELEASE) PO PRN ×2 (05:22→09:17)
[2018-05-02] MEDS: ACETAMINOPHEN 500 MG TAB PO SCH ×2 (05:46→14:20)
[2018-05-02 06:22] LABS: Basophils # (auto) 0.01 K/uL (0-0.2); Basophils % (auto) 0.1 %; Eosinophils # (auto) 0.06 K/uL (0-0.5); Eosinophils % (auto) 0.6 %; Hematocrit (blood only) 30.2 % (37-47); Hemoglobin 9.6 g/dL (12.0-16.0); Immature Granulocytes # (auto) 0.05 K/uL (0.00-0.02); Immature Granulocytes % (auto) 0.5 %; Lymphocytes # (auto) 2.42 K/uL (1.2-3.4); Mean Corpuscular Hgb Conc 31.8 g/dL (32-36); Mean Corpuscular Volume 88.6 fL (80-100); Mean Platelet Volume 9.8 fL (7.4-10.4); Monocytes # (auto) 1.14 K/uL (0.11-0.59); Monocytes % (auto) 11.8 %; Platelet Count 232 K/uL (130-400); RDW Coefficient of Variation 14.7 % (11.5-14.5); RDW Standard Deviation 47.9 fL (36.4-46.3); Red Blood Count 3.41 M/uL (4.2-5.4); White Blood Count 9.68 K/uL (4.8-10.8)
[2018-05-02 06:52] LABS: BUN Creatinine Ratio 32.1 (10-20); Calcium 8.4 mg/dl (8.5-10.1); Creatinine Clr Calc Pharmacy 85.3 ml/min; Est GFR (Non-African American) 76.8; Potassium 4.1 mmol/L (3.5-5.1)
[2018-05-02] MEDS: METOPROLOL SUCC 50MG EXT REL TAB PO SCH (07:25)
[2018-05-02] MEDS: MULTIVITAMIN TAB PO SCH (07:25)
[2018-05-02] MEDS: [UNRECOGNIZED DRUG - REMARK] PO SCH (07:26)
[2018-05-02] MEDS: FLUTICASONE/SALMETEROL (ADVAIR) 500/50 INH 14 PUFF INH SCH (07:26)
[2018-05-02] MEDS: DOCUSATE SODIUM 100 MG CAP PO SCH (07:26)
[2018-05-02] MEDS: ATORVASTATIN 40 MG TAB PO SCH (07:26)
[2018-05-02] MEDS: PANTOprazole 40 MG TAB PO SCH (07:27)
[2018-05-02] MEDS: ASPIRIN 81 MG ECTAB PO SCH (07:27)
--- NOTE | 2018-05-02 08:43 | Orthopedic Progress Note ---
Date of Service May 02, 2018 Assessment & Plan (1) DJD of left shoulder: POD #2, Left shoulder TSA, biceps tenodesis PT/ OT DVT proph- ASA D/C planning- Home w OPPT today As per medicine Subjective POD #2, Feeling well, denies sob, cp, n/v, pain controlled well today. She is ready for discharge. Sitting comfortably in chair doing exercises. Physical Exam Vital Signs (Past 24 Hours): Last Vital Signs Temp 37.1 C 05/02/ 06:40 Pulse 72 05/02/18 06:40 Resp 16 05/02/18 06:40 BP 124/71 05/02/18 06:40 Pulse Ox 99 05/02/18 06:40 Left shoulder dressing c/d/i, fingers mobile. A&Ox3, doing exercises with therapy. (1) DJD of left shoulder Osteoarthritis type: primary Qualified Code(s): M19.012 - Primary osteoarthritis, left shoulder
[2018-05-02] MEDS ORDERED: ONDANSETRON 8 MG TABLET PO PRN (13:23)
--- NOTE | 2018-05-04 09:38 | Discharge Summary ---
Date of Service May 19, 2018 Discharge Data Consultations 04/29/18 10:35 Consult Hospitalist Routine 04/30/18 15:46 Consult Case Management - Discharge Planning Routine Consult Hospitalist Routine Procedures Performed Operation Date: 04/30/18 11:25 Actual Procedures p Left Total Shoulder Arthroplasty(Left) - Stanley Burr MD
--- NOTE | 2018-05-17 21:39 | Discharge Summary ---
CHIEF COMPLAINT: Chronic left shoulder pain. HISTORY OF PRESENT ILLNESS: This is a 62-year-old female patient of Dr. Burr'john complaining of chronic left shoulder pain, longstanding, now progressively getting worse. She was diagnosed with end-stage osteoarthritis and wished to proceed with a left total shoulder arthroplasty. PAST MEDICAL HISTORY: Angina, benign congenital heart murmur, hypertension, hypercholesterolemia, asthma, COPD, and sciatica. POSTOPERATIVE COURSE: The patient underwent a left total shoulder arthroplasty and biceps tenodesis on 04/30/2018. She was followed closely with medical consultation, DVT prophylaxis in the form of aspirin, pain control and physical therapy. The patient did very well postoperatively and was discharged home on postoperative day #2. PHYSICAL EXAMINATION: On discharge left shoulder incision was clean, dry and intact. There was no redness or drainage. Her elbow, wrist and fingers were mobile. Her sling was intact. Neurologically and neurovascularly she is intact in her left upper extremity. DIAGNOSES: Status post left total shoulder arthroplasty and biceps tenodesis with a history of angina, congenital heart murmur, hypertension, hypercholesterolemia, asthma, chronic obstructive pulmonary disease, and sciatica. PLAN: The patient was discharged home on her preadmission medications as well as pain medications. She will continue aspirin for DVT prophylaxis. She will follow up as scheduled as an outpatient.
== END 2018-05-02 14:57 | disposition home or self-care (01) | DRG 483 ==
LOC: ASU 08:51 → 3E 14:27